=== PATIENT | female | born 1980 | race Caucasian/White ===

== ENCOUNTER 2021-03-24 02:09 | Observation (INO) | payer MEDICARE, MEDICAID ==
[2021-03-24 02:14] VITALS: BMI 32.1
[2021-03-24 03:01] LABS: Troponin I Less than 0.010 ng/mL (< 0.028)
[2021-03-24] MEDS ORDERED: Nitroglycerin 0.4 MG TAB (25 Tab Bottle) SL SCH (03:30)
[2021-03-24] MEDS ORDERED: Nitroglycerin 0.4 MG TAB (25 Tab Bottle) SL PRN (04:32)
[2021-03-24] MEDS ORDERED: Sodium Chloride 0.9% 500 ML IV SCH (04:45)
[2021-03-24] MEDS ORDERED: diphenhydrAMINE 50 MG/ML VIAL IVP SCH (04:45)
[2021-03-24] MEDS: Morphine 4 MG/ML VIAL SLOW IVP PRN ×3 (05:03→13:00)
[2021-03-24] MEDS: Albuterol Sulfate 2.5 mg/3 ml Neb NEB SCH ×2 (07:16→10:53)
[2021-03-24] MEDS: Nicotine 21 MG PATCH TD SCH ×2 (08:46→08:56)
[2021-03-24] MEDS ORDERED: Lisinopril 10 MG TAB PO SCH (09:00)
[2021-03-24] MEDS ORDERED: Aspirin Chewable 81 MG TAB PO SCH (09:00)
[2021-03-24 09:43] LABS: Anion Gap 13 mmol/L (10-20); BUN (Urea Nitrogen) 9 mg/dL (7.0-18.7); Calc. Creatinine Clearance 130 mL/min (70-130); Calcium 8.6 mg/dL (7.8-10.44); Carbon Dioxide 25 mmol/L (22-29); Chloride 108 mmol/L (98-107); Cholesterol 151 mg/dl (< 200 Desired); Glucose 97 mg/dL (70-105); HDL Cholesterol 30 mg/dL (>60 Neg Risk); LDL Cholesterol, Calculated 74 mg/dL; Potassium 3.7 mmol/L (3.5-5.1); Sodium 142 mmol/L (136-145); Triglycerides 237 mg/dL (Less than 150)
[2021-03-24 09:49] LABS: Troponin I Less than 0.010 ng/mL (< 0.028)
[2021-03-24] MEDS ORDERED: diphenhydrAMINE 25 MG CAP PO SCH (11:30)
[2021-03-24 12:13] VITALS: BP 110/76; TEMP 97
[2021-03-24] MEDS ORDERED: Potassium Chloride 20 MEQ TAB PO SCH (12:45)
[2021-03-24] MEDS ORDERED: Enoxaparin Sodium 40 MG/0.4 ML SYRINGE SC SCH (21:00)
[2021-03-25] MEDS ORDERED: FLU VACC QS2021-22(6MOS UP)/PF 60 MCG/0.5 ML SYRINGE IM ONE (09:00)
== END 2021-03-24 14:16 | disposition left against medical advice (07) ==
LOC: CSHTELE 02:09
PROVIDERS: ADMIT Family Medicine; ATTEND Internal Medicine
DX: R07.89 Other chest pain (principal); I25.10 Atherosclerotic heart disease of native coronary artery without angina pectoris; I25.2 Old myocardial infarction; J44.9 Chronic obstructive pulmonary disease, unspecified; F17.210 Nicotine dependence, cigarettes, uncomplicated; L40.9 Psoriasis, unspecified; Z90.49 Acquired absence of other specified parts of digestive tract; Z90.710 Acquired absence of both cervix and uterus; F41.8 Other specified anxiety disorders; Z79.899 Other long term (current) drug therapy; Z79.82 Long term (current) use of aspirin
CPT/HCPCS: 80048; 80061; 83735; 84484 ×2; 93005; 93306; 94640 ×2; 96374; 96375; 96376; G0378; 36415; 93010; J1200; J2270; J7030; J7611

== ENCOUNTER 2021-04-12 08:34 | Emergency (ER) | payer MEDICARE, MEDICAID ==
[2021-04-12] MEDS ORDERED: methylPREDNISolone Sod Succ/PF 125 MG/2 ML VIAL ONE (09:42)
[2021-04-12] MEDS ORDERED: Promethazine HCl 25 MG/ML VIAL ONE (09:43)
[2021-04-12 09:48] LABS: #Basophils 0.1 10x3/uL (0.0-0.2); #Eosinphils 0.1 10x3/uL (0.0-0.5); #Monocytes 0.9 10x3/uL (0.0-1.1); #Neutrophils 7.5 10x3/uL (1.5-8.4); %Basophils 0.5 % (0.0-2.0); %Eosinophils 0.8 % (0.0-6.0); %Lymphocytes 26.2 % (18.0-47.0); %Monocytes 7.8 % (0.0-10.0); %Neutrophils 64.4 % (40.0-75.0); Hemoglobin 15.7 g/dL (12.0-15.5); Mean Corpuscular HGB CONC 33.8 g/dL (32.0-36.0); Mean Corpuscular Hemoglobin 31.2 pg (27.0-33.0); Mean Corpuscular Volume 92.4 fl (81.6-98.3); Mean Platelet Volume 9.2 fl (7.4-10.4); Platelet Count 444 10x3/uL (150-450); RBC Distribution Width 12.9 % (11.5-14.5); Red Blood Cell (RBC) Count 5.03 10x6/uL (3.90-5.03); White Blood Cell (WBC) Count 11.7 10x3/uL (3.5-10.5)
[2021-04-12 09:59] LABS: ALT (SGPT) 13 U/L (8-55); AST (SGOT) 16 U/L (5-34); Albumin 4.9 g/dL (3.5-5.0); Alkaline Phosphatase 83 U/L (40-110); Anion Gap 15 mmol/L (10-20); BUN (Urea Nitrogen) 9 mg/dL (7.0-18.7); Bilirubin, Total 0.6 mg/dL (0.2-1.2); Calc. Creatinine Clearance 0 mL/min (70-130); Calcium 9.6 mg/dL (7.8-10.44); Carbon Dioxide 25 mmol/L (22-29); Chloride 104 mmol/L (98-107); Globulin 2.8 g/dL (2.4-3.5); Glucose 96 mg/dL (70-105); Potassium 4.2 mmol/L (3.5-5.1); Protein, Total 7.7 g/dL (6.0-8.3); Sodium 140 mmol/L (136-145)
[2021-04-12] MEDS ORDERED: Acetaminophen 325 MG TAB PO PRN (11:16)
[2021-04-12] MEDS ORDERED: Nicotine 14 MG PATCH TD PRN (11:16)
[2021-04-12] MEDS ORDERED: Nitroglycerin 0.4 MG TAB (25 Tab Bottle) SL PRN (11:19)
[2021-04-12] MEDS ORDERED: Melatonin 3 MG TAB PO PRN (11:25)
[2021-04-12] MEDS ORDERED: Electrolyte Replacement Protocol 1 EACH FS SCH (11:30)
[2021-04-12] MEDS ORDERED: Morphine 4 MG/ML VIAL SLOW IVP PRN (12:06)
[2021-04-12] MEDS ORDERED: Morphine 4 MG/ML VIAL ONE ×2 (12:11→16:11)
[2021-04-12 12:47] LABS: Troponin I Less than 0.010 ng/mL (< 0.028)
[2021-04-12] MEDS ORDERED: Lorazepam 0.5 MG TAB PO PRN (13:47)
[2021-04-12] MEDS ORDERED: Lorazepam 2 MG/ML VIAL ONE (13:59)
[2021-04-12] MEDS ORDERED: Promethazine HCl 12.5 MG in Sodium Chloride 0.9% 50 ML IVPB PRN (16:00)
[2021-04-12] MEDS ORDERED: diphenhydrAMINE 25 MG CAP PO PRN (16:00)
[2021-04-12 16:38] LABS: Troponin I Less than 0.010 ng/mL (< 0.028)
[2021-04-12] MEDS ORDERED: diphenhydrAMINE 25 MG CAP ONE (18:03)
[2021-04-12] MEDS ORDERED: AMOXicillin 500 MG CAP PO SCH (21:00)
[2021-04-13] MEDS ORDERED: Aspirin 325 MG TAB PO SCH (09:00)
[2021-04-13] MEDS ORDERED: Lisinopril 10 MG TAB PO SCH (09:00)
== END 2021-04-12 18:31 | disposition left against medical advice (07) ==
LOC: CSHERS 08:34
DX: R07.89 Other chest pain (principal); I10 Essential (primary) hypertension; I48.91 Unspecified atrial fibrillation; J44.9 Chronic obstructive pulmonary disease, unspecified; F17.210 Nicotine dependence, cigarettes, uncomplicated
CPT/HCPCS: 36415; 71045; 80053; 84484; 85025; 93005; 94640; 96374; 96375; 96376; J2060; J2270; J2550; J2930; J7620

== ENCOUNTER 2021-08-24 00:25 | Observation (INO) | payer MEDICARE, MEDICAID ==
[2021-08-24 00:56] LABS: #Basophils 0.1 10x3/uL (0.0-0.2); #Eosinphils 0.1 10x3/uL (0.0-0.5); #Monocytes 1.1 10x3/uL (0.0-1.1); #Neutrophils 8.6 10x3/uL (1.5-8.4); %Basophils 0.4 % (0.0-2.0); %Lymphocytes 28.9 % (18.0-47.0); %Monocytes 7.9 % (0.0-10.0); %Neutrophils 61.4 % (40.0-75.0); Hemoglobin 14.7 g/dL (12.0-15.5); Mean Corpuscular HGB CONC 34.3 g/dL (32.0-36.0); Mean Corpuscular Hemoglobin 31.6 pg (27.0-33.0); Mean Corpuscular Volume 92.3 fl (81.6-98.3); Mean Platelet Volume 9.2 fl (7.4-10.4); Platelet Count 463 10x3/uL (150-450); Red Blood Cell (RBC) Count 4.65 10x6/uL (3.90-5.03)
[2021-08-24 01:17] LABS: ALT (SGPT) 10 U/L (8-55); AST (SGOT) 13 U/L (5-34); Albumin 4.4 g/dL (3.5-5.0); Alkaline Phosphatase 78 U/L (40-110); Anion Gap 18 mmol/L (10-20); BUN (Urea Nitrogen) 14 mg/dL (7.0-18.7); Bilirubin, Total 0.4 mg/dL (0.2-1.2); Calc. Creatinine Clearance 0 mL/min (70-130); Calcium 9.7 mg/dL (7.8-10.44); Carbon Dioxide 22 mmol/L (22-29); Chloride 105 mmol/L (98-107); Globulin 2.7 g/dL (2.4-3.5); Glucose 113 mg/dL (70-105); Potassium 4.2 mmol/L (3.5-5.1); Protein, Total 7.1 g/dL (6.0-8.3); Sodium 141 mmol/L (136-145)
[2021-08-24] MEDS ORDERED: diphenhydrAMINE 50 MG/ML VIAL ONE (01:38)
[2021-08-24] MEDS ORDERED: Ondansetron PF 4 MG/2 ML Vial ONE (01:38)
[2021-08-24] MEDS ORDERED: Morphine 2 MG/ML VIAL ONE (01:39)
[2021-08-24] MEDS ORDERED: Promethazine HCl 25 MG/ML VIAL ONE (02:08)
[2021-08-24] MEDS ORDERED: Clopidogrel Bisulfate 75 MG TAB ONE (02:47)
[2021-08-24] MEDS ORDERED: Ondansetron PF 4 MG/2 ML Vial IVP PRN (02:50)
[2021-08-24] MEDS ORDERED: Acetaminophen 325 MG TAB PO PRN (02:50)
[2021-08-24] MEDS ORDERED: Calcium Carbonate 500 MG ChewTAB PO PRN (02:50)
[2021-08-24] MEDS ORDERED: Zolpidem Tartrate 5 MG TAB PO PRN (02:50)
[2021-08-24] MEDS ORDERED: HYDROcodone/Acetaminophen 5/325 mg Tablet PO PRN (02:50)
[2021-08-24] MEDS ORDERED: Senokot S 8.6-50 MG TAB PO PRN (02:50)
[2021-08-24] MEDS ORDERED: Guaifenesin DM 100-10/5 ML UDCUP PO PRN (02:50)
[2021-08-24] MEDS ORDERED: Aspirin Chewable 81 MG TAB ONE (02:52)
[2021-08-24 04:08] LABS: Cardiac Risk 4.1 (Less than 4.5)
[2021-08-24 04:12] VITALS: BMI 35.1
[2021-08-24] MEDS ORDERED: Morphine 2 MG/ML VIAL SLOW IVP PRN (04:34)
[2021-08-24] MEDS ORDERED: diphenhydrAMINE 50 MG CAP PO PRN (04:38)
[2021-08-24] MEDS ORDERED: methylPREDNISolone Sod Succ 40 MG VIAL IVP SCH (04:45)
[2021-08-24] MEDS ORDERED: Mometasone/Formoterol 200/5 60 PUFF INH SCH (06:30)
[2021-08-24] MEDS ORDERED: predniSONE 20 MG TAB PO SCH (08:00)
[2021-08-24] MEDS ORDERED: Famotidine 20 MG TAB PO SCH (09:00)
[2021-08-24] MEDS ORDERED: Benzonatate 100 MG CAP PO SCH (09:00)
[2021-08-24] MEDS ORDERED: Aspirin 81 mg Enteric Coated Tablet PO SCH (09:00)
[2021-08-24] MEDS ORDERED: Enoxaparin Sodium 40 MG/0.4 ML SYRINGE SC SCH (09:00)
[2021-08-24] MEDS ORDERED: Metoprolol Tartrate 25 MG TAB PO SCH (09:00)
[2021-08-24] MEDS ORDERED: Lisinopril 2.5 MG TAB PO SCH (09:00)
[2021-08-24] MEDS ORDERED: diphenhydrAMINE 50 MG/ML VIAL IM SCH (09:30)
[2021-08-24 11:43] VITALS: BP 112/74; TEMP 97.9
[2021-08-24] MEDS ORDERED: Ivabradine 5 MG TAB PO SCH ×3 (11:45→21:00)
[2021-08-24 11:50] LABS: Hemoglobin A1c 5.2 % (4.0-6.0)
[2021-08-24 15:50] LABS: SARS-CoV-2 PCR by NAA Not Detected (NotDetected)
[2021-08-24] MEDS ORDERED: Atorvastatin Calcium 10 MG TAB PO SCH (21:00)
[2021-08-25] MEDS ORDERED: diphenhydrAMINE 50 MG/ML VIAL IM SCH (09:00)
== END 2021-08-24 12:56 | disposition home or self-care (01) ==
LOC: CSHERS 00:25 → CSHTELE 04:07
PROVIDERS: ADMIT Student in an Organized Health Care Education/Training Program; ATTEND Internal Medicine
DX: R07.2 Precordial pain (principal); I11.0 Hypertensive heart disease with heart failure; I50.32 Chronic diastolic (congestive) heart failure; Z79.899 Other long term (current) drug therapy; I25.2 Old myocardial infarction; F41.9 Anxiety disorder, unspecified; F32.A Depression, unspecified; F43.10 Post-traumatic stress disorder, unspecified; J44.9 Chronic obstructive pulmonary disease, unspecified; F17.210 Nicotine dependence, cigarettes, uncomplicated; Z20.822 Contact with and (suspected) exposure to COVID-19
CPT/HCPCS: 71045; 80061; 83036; 83880; 84484 ×2; 85379; 93005; 94640; 94664; 96372; 96374; 96375; 96376; 99285; G0378 ×2; J2270; U0003; U0005; 36415; 80053; 84443; 85025; J1200; J1650; J2405; J2550; J7512

== ENCOUNTER 2021-09-06 22:34 | Inpatient (IN) | payer MEDICARE, MEDICAID ==
[2021-09-06 22:54] VITALS: BMI 32.5
[2021-09-06] MEDS ORDERED: Calcium Carbonate 500 MG ChewTAB PO PRN (23:15)
[2021-09-06] MEDS ORDERED: Acetaminophen 325 MG TAB PO PRN (23:15)
[2021-09-06] MEDS ORDERED: Guaifenesin DM 100-10/5 ML UDCUP PO PRN (23:15)
[2021-09-06] MEDS ORDERED: Senokot S 8.6-50 MG TAB PO PRN (23:15)
[2021-09-06] MEDS ORDERED: Metoclopramide HCl 10 MG/2 ML VIAL IVP PRN (23:18)
[2021-09-06] MEDS ORDERED: Metoprolol Tartrate 25 MG TAB PO SCH (23:30)
[2021-09-06 23:56] LABS: Magnesium 1.8 mg/dL (1.6-2.6)
[2021-09-07] MEDS: HYDROcodone/Acetaminophen 10/325 mg Tablet PO PRN ×4 (00:20→18:43)
[2021-09-07] MEDS: Promethazine 25 MG TAB PO PRN ×2 (00:20→21:04)
[2021-09-07] MEDS ORDERED: Magnesium Sulfate/D5W 1 GM/100 ML BAG IVPB SCH (02:00)
[2021-09-07 04:43] LABS: Anion Gap 16 mmol/L (10-20); BUN (Urea Nitrogen) 14 mg/dL (7.0-18.7); Calc. Creatinine Clearance 121 mL/min (70-130); Calcium 8.7 mg/dL (7.8-10.44); Carbon Dioxide 24 mmol/L (22-29); Chloride 106 mmol/L (98-107); Glucose 91 mg/dL (70-105); Potassium 3.5 mmol/L (3.5-5.1); Sodium 142 mmol/L (136-145)
[2021-09-07] MEDS ORDERED: Potassium Chloride 20 MEQ TAB PO SCH (06:15)
[2021-09-07 07:45] LABS: Bilirubin 1+ (Negative); Blood, Urine Negative (Negative); Clarity Cloudy (Clear); Glucose, Urine (Dipstick) Normal (Negative); Ketone, Urine 5 mg/dL (Negative); Leukocyte 25 (Negative); Nitrite Negative (Negative); Protein, Urine (Dipstick) 30 mg/dl (Neg-Trace); Specific Gravity, Urine 1.025 (1.002-1.036)
[2021-09-07 07:54] LABS: Urine Culture Reflex No No
[2021-09-07 08:03] LABS: Bacteria/HPF 1+ HPF (None Seen); RBC/HPF None Seen HPF (0-3); Squamous Epithelial 0-3 HPF (0-3); WBC/HPF 0-3 HPF (0-3)
[2021-09-07 08:06] LABS: Amphetamine Not Detected (NotDetected); Barbiturates Screen Not Detected (NotDetected); Benzodiazepine Screen Detected (NotDetected); Cocaine Metabolite Screen Not Detected (NotDetected); Methadone Not Detected (NotDetected); Methamphetamine Not Detected (NotDetected); Opiate Screen Detected (NotDetected); Oxycodone Screen Not Detected (NotDetected); Phencyclidine (PCP) Not Detected (NotDetected); THC/Cannabinoid Screen Not Detected (NotDetected); Tricyclic Screen Not Detected (NotDetected)
[2021-09-07] MEDS: Lisinopril 2.5 MG TAB PO SCH (09:59)
[2021-09-07] MEDS: Enoxaparin Sodium 40 MG/0.4 ML SYRINGE SC SCH (10:00)
[2021-09-07 12:18] LABS: Troponin I Less than 0.010 ng/mL (< 0.028)
[2021-09-07 16:23] LABS: SARS-CoV-2 PCR by NAA Not Detected (NotDetected)
[2021-09-07] MEDS: diphenhydrAMINE 50 MG/ML VIAL IM PRN (17:24)
[2021-09-08 08:26] LABS: #Basophils 0.1 10x3/uL (0.0-0.2); #Eosinphils 0.2 10x3/uL (0.0-0.5); #Neutrophils 9.7 10x3/uL (1.5-8.4); %Basophils 0.4 % (0.0-2.0); %Eosinophils 1.1 % (0.0-6.0); %Neutrophils 69.1 % (40.0-75.0); Hemoglobin 14.7 g/dL (12.0-15.5); Mean Corpuscular HGB CONC 33.6 g/dL (32.0-36.0); Mean Corpuscular Hemoglobin 31.9 pg (27.0-33.0); Mean Platelet Volume 9.5 fl (7.4-10.4); Platelet Count 395 10x3/uL (150-450); RBC Distribution Width 12.9 % (11.5-14.5); Red Blood Cell (RBC) Count 4.61 10x6/uL (3.90-5.03); White Blood Cell (WBC) Count 14.1 10x3/uL (3.5-10.5)
[2021-09-08 08:39] LABS: Anion Gap 17 mmol/L (10-20); BUN (Urea Nitrogen) 15 mg/dL (7.0-18.7); Calc. Creatinine Clearance 129 mL/min (70-130); Calcium 9.2 mg/dL (7.8-10.44); Carbon Dioxide 25 mmol/L (22-29); Chloride 102 mmol/L (98-107); Glucose 85 mg/dL (70-105); Potassium 4.7 mmol/L (3.5-5.1)
[2021-09-08 08:53] LABS: Sodium 139 mmol/L (136-145)
[2021-09-08] MEDS: Enoxaparin Sodium 40 MG/0.4 ML SYRINGE SC SCH (09:46)
[2021-09-08] MEDS: Lisinopril 2.5 MG TAB PO SCH (09:47)
[2021-09-08] MEDS: HYDROcodone/Acetaminophen 10/325 mg Tablet PO PRN ×3 (09:47→21:25)
[2021-09-08] MEDS: diphenhydrAMINE 50 MG/ML VIAL IM PRN ×2 (09:52→17:39)
[2021-09-08] MEDS ORDERED: Aspirin 81 mg Enteric Coated Tablet PO SCH (10:45)
[2021-09-08] MEDS ORDERED: Atorvastatin Calcium 40 MG TAB PO SCH (21:00)
[2021-09-08] MEDS ORDERED: diphenhydrAMINE 50 MG/ML VIAL IM SCH (22:15)
[2021-09-09] MEDS: HYDROcodone/Acetaminophen 10/325 mg Tablet PO PRN ×3 (02:28→17:48)
[2021-09-09] MEDS ORDERED: Promethazine 25 MG TAB PO SCH (04:15)
[2021-09-09 05:20] LABS: Hemoglobin 14.4 g/dL (12.0-15.5); Mean Corpuscular HGB CONC 33.9 g/dL (32.0-36.0); Mean Corpuscular Hemoglobin 31.7 pg (27.0-33.0); Mean Corpuscular Volume 93.6 fl (81.6-98.3); Platelet Count 377 10x3/uL (150-450); RBC Distribution Width 12.8 % (11.5-14.5); Red Blood Cell (RBC) Count 4.54 10x6/uL (3.90-5.03); White Blood Cell (WBC) Count 16.3 10x3/uL (3.5-10.5)
[2021-09-09 05:23] LABS: Anion Gap 15 mmol/L (10-20); BUN (Urea Nitrogen) 15 mg/dL (7.0-18.7); Calc. Creatinine Clearance 136 mL/min (70-130); Carbon Dioxide 27 mmol/L (22-29); Chloride 102 mmol/L (98-107); Glucose 94 mg/dL (70-105); Potassium 3.9 mmol/L (3.5-5.1); Sodium 140 mmol/L (136-145)
[2021-09-09 05:50] LABS: MDiff Complete? YES
[2021-09-09 05:52] LABS: Band 3 % (5-11); Eosinophils 3 % (0-10); Lymphocytes 25 % (21-51); Monocytes 3 % (0-10); Neutrophil 56 % (42-75); Reactive Lymphocytes 10 % (0-10)
[2021-09-09 05:53] LABS: Platelet Morphology Comment Appears Adequate
[2021-09-09 05:54] LABS: RBC Morphology Normal
[2021-09-09] MEDS ORDERED: Aspirin 81 mg Enteric Coated Tablet PO SCH (07:00)
[2021-09-09] MEDS: Lisinopril 2.5 MG TAB PO SCH (07:07)
[2021-09-09] MEDS: Enoxaparin Sodium 40 MG/0.4 ML SYRINGE SC SCH (07:14)
[2021-09-09] MEDS: diphenhydrAMINE 50 MG/ML VIAL IM PRN (11:30)
[2021-09-09 16:40] VITALS: BP 100/74
[2021-09-09 17:17] VITALS: TEMP 96.1
[2021-09-10] MEDS ORDERED: Aspirin 81 mg Enteric Coated Tablet PO SCH (09:00)
== END 2021-09-09 18:18 | disposition home or self-care (01) | DRG 309 ==
LOC: UNDOADMOB 22:34 → CSHTELE 22:34 → INTOOBSV 22:34 → OBSVTOIN 22:34 → CSHTELE 09-08 11:44
PROVIDERS: ADMIT Student in an Organized Health Care Education/Training Program; ATTEND Internal Medicine
DX: R00.2 Palpitations (principal); I50.32 Chronic diastolic (congestive) heart failure; R00.0 Tachycardia, unspecified; R07.2 Precordial pain; I48.91 Unspecified atrial fibrillation; I11.0 Hypertensive heart disease with heart failure; F17.210 Nicotine dependence, cigarettes, uncomplicated; F41.9 Anxiety disorder, unspecified; F31.9 Bipolar disorder, unspecified; F43.10 Post-traumatic stress disorder, unspecified; I07.1 Rheumatic tricuspid insufficiency; I25.10 Atherosclerotic heart disease of native coronary artery without angina pectoris; J44.9 Chronic obstructive pulmonary disease, unspecified; G89.29 Other chronic pain; R11.2 Nausea with vomiting, unspecified; M54.9 Dorsalgia, unspecified; L40.9 Psoriasis, unspecified; Z20.822 Contact with and (suspected) exposure to COVID-19; Z71.6 Tobacco abuse counseling; I25.2 Old myocardial infarction; Z88.8 Allergy status to other drugs, medicaments and biological substances; Z79.899 Other long term (current) drug therapy; Z90.710 Acquired absence of both cervix and uterus; Z90.49 Acquired absence of other specified parts of digestive tract; Z98.891 History of uterine scar from previous surgery; Z83.3 Family history of diabetes mellitus; Z82.49 Family history of ischemic heart disease and other diseases of the circulatory system; R07.9 Chest pain, unspecified
CPT/HCPCS: 36415; 71045; 80048; 80053; 80306; 81001; 83690; 83735; 84443; 84484; 85025; 87086; 93005; 93010; 96372; 96374; G0378; J1200; J1650; J2765; J3475; Q0169; U0003; U0005

== ENCOUNTER 2024-04-21 13:37 | Emergency (ER) | payer OTHER, MEDICAID ==
[2024-04-21] MEDS ORDERED: Aspirin Chewable 81 MG TAB ONE (14:52)
[2024-04-21] MEDS ORDERED: Morphine 4 MG/ML VIAL ONE (14:52)
[2024-04-21] MEDS ORDERED: Nitroglycerin 0.4 MG TAB 1 EACH ONE (14:54)
[2024-04-21 15:10] LABS: #Basophils 0.05 10x3/uL (0.0-0.2); #Eosinophils 0.24 10x3/uL (0.0-0.5); #Monocytes 1.09 10x3/uL (0.0-1.1); #Neutrophils 6.73 10x3/uL (1.5-8.4); %Basophils 0.4 % (0.0-2.0); %Lymphocytes 32.3 % (18.0-47.0); %Monocytes 9.1 % (0.0-10.0); Hematocrit 44.8 % (34.9-44.5); Hemoglobin 14.6 g/dL (12.0-15.5); Mean Corpuscular HGB CONC 32.6 g/dL (32.0-36.0); Mean Corpuscular Hemoglobin 30.9 pg (27.0-33.0); Mean Corpuscular Volume 94.9 fL (81.6-98.3); Platelet Count 422 10x3/uL (150-450); RBC Distribution Width 13.2 % (11.5-14.5); Red Blood Cell (RBC) Count 4.72 10x6/uL (3.90-5.03)
[2024-04-21 15:25] LABS: Bilirubin Neg (Negative); Blood, Urine Negative (Negative); Clarity Clear (Clear); Glucose, Urine (Dipstick) Normal (Negative); Ketone, Urine Negative (Negative); Leukocyte Negative (Negative); Nitrite Negative (Negative); Protein, Urine (Dipstick) Negative (Neg-Trace); Urobilinogen Normal mg/dL (Less than 2); pH, Urine 6.5 (5.0-9.0)
[2024-04-21 15:27] LABS: ALT (SGPT) 15 U/L (8-55); AST (SGOT) 15 U/L (5-34); Albumin 3.9 g/dL (3.5-5.0); Alkaline Phosphatase 79 U/L (40-110); Anion Gap 15 mmol/L (10-20); BUN (Urea Nitrogen) 11 mg/dL (7.0-18.7); Bilirubin, Total 0.3 mg/dL (0.2-1.2); Calc. Creatinine Clearance 0 mL/min (70-130); Calcium 9.5 mg/dL (7.8-10.44); Carbon Dioxide 24 mmol/L (22-29); Chloride 102 mmol/L (98-107); Estimated GFR 92; Globulin 3.5 g/dL (2.4-3.5); Glucose 93 mg/dL (70-105); Potassium 4.3 mmol/L (3.5-5.1); Protein, Total 7.4 g/dL (6.0-8.3); Sodium 137 mmol/L (136-145)
[2024-04-21 15:27] LABS: Pregnancy Test - Urine (BHCG) Negative (Negative); Pregu Control Background? CLEAR/WHITE (CLR/WHITE); Pregu Control Bar Appear? YES (CONTROL BAR)
[2024-04-21 15:33] LABS: Troponin I Less than 0.010 ng/mL (< 0.028)
[2024-04-21 15:33] LABS: Amphetamine Not Detected (NotDetected); Barbiturates Screen Not Detected (NotDetected); Benzodiazepine Screen Not Detected (NotDetected); Cocaine Metabolite Screen Not Detected (NotDetected); Methadone Not Detected (NotDetected); Methamphetamine Not Detected (NotDetected); Opiate Screen Detected (NotDetected); Oxycodone Screen Not Detected (NotDetected); Phencyclidine (PCP) Not Detected (NotDetected); THC/Cannabinoid Screen Not Detected (NotDetected); Tricyclic Screen Not Detected (NotDetected)
[2024-04-21 16:07] LABS: CAUTI Indications for Culture Pelvic or flank pain; RBC/HPF 0-3 HPF (0-3); WBC/HPF 0-3 HPF (0-3)
[2024-04-21 16:11] LABS: Bacteria/HPF Rare-Few HPF (None Seen)
[2024-04-21 16:12] LABS: Urine Culture Reflex No No
[2024-04-21] MEDS ORDERED: diphenhydrAMINE 50 MG/ML VIAL ONE (16:42)
[2024-04-21 17:49] LABS: Troponin I Less than 0.010 ng/mL (< 0.028)
== END 2024-04-21 18:15 | disposition home or self-care (01) ==
LOC: CSHERS 13:37
DX: R07.9 Chest pain, unspecified (principal); I10 Essential (primary) hypertension; F17.210 Nicotine dependence, cigarettes, uncomplicated
CPT/HCPCS: 71045; 80053; 80306; 81001; 81025; 83880; 84484 ×2; 85025; 93005; J1200; J2272; 96372